=== PATIENT | female | born 1970 | race Caucasian/White ===

== ENCOUNTER → 2022-12-19 | Day surgery (SDC) | payer BC ==
[2022-12-15 14:31] VITALS: BMI 35.9
[~2022-12-19] MED LIST: PROPOFOL 40 ML ONE
[2022-12-19 11:37] VITALS: TEMP 96.8
[2022-12-19 11:52] VITALS: BP 120/52; PULSE 86; RESP 16
== END | disposition home or self-care (01) ==
LOC: FASU-ENDO 09:49
PROVIDERS: ATTEND Internal Medicine Gastroenterology
PROC: 0DB98ZX Excision of Duodenum, Via Natural or Artificial Opening Endoscopic, Diagnostic (ICD-10-PCS; 2022-12-19)
PROC: 0DB68ZX Excision of Stomach, Via Natural or Artificial Opening Endoscopic, Diagnostic (ICD-10-PCS; 2022-12-19)
PROC: 0DBN8ZX Excision of Sigmoid Colon, Via Natural or Artificial Opening Endoscopic, Diagnostic (ICD-10-PCS; principal; 2022-12-19 10:57)
DX: Z12.11 Encounter for screening for malignant neoplasm of colon (principal); D12.5 Benign neoplasm of sigmoid colon; K29.70 Gastritis, unspecified, without bleeding; K44.9 Diaphragmatic hernia without obstruction or gangrene
CPT/HCPCS: 88305-TC; 88342-TC